=== PATIENT | female | born 1985 | race Caucasian/White ===

== ENCOUNTER 2016-07-03 08:09 | Inpatient (IN) | payer OTHER ==
[2016-07-03] MEDS ORDERED: Oxytocin in LR* 20 UNITS/1,000 ML BAG IVPB SCH ×2 (09:00→13:56)
[2016-07-03 09:27] LABS: Hematocrit 35 % (35-47); Hemoglobin 11.8 g/dl (12.0-16.0); Mean Corpuscular HGB Conc 34 g/dl (31-36); Mean Corpuscular Hemoglobin 30 pg (27-31); Mean Corpuscular Volume 89 fL (80-97); Mean Platelet Volume 8 um3 (7.4-10.4); Red Blood Count 3.93 10^6/ul (4.0-5.4); Red Cell Distribution Width 13 % (10.5-15); White Blood Count 8.5 10^3/ul (3.5-10.8)
[2016-07-03] MEDS ORDERED: OBEPIDURAL* 250 ML ONE (11:55)
[2016-07-03] MEDS ORDERED: Sodium Citrate/Citric Acid* 15 ML UDC PO PRN (12:20)
[2016-07-03] MEDS ORDERED: Phenylephrine IV* 40 MCG/ML 10 ML SYRINGE IV PUSH PRN ×2 (12:20)
[2016-07-03] MEDS ORDERED: Famotidine TAB* 20 MG PO PRN (12:20)
[2016-07-03] MEDS ORDERED: OBEPIDURAL* 250 ML EPIDURAL SCH (13:00)
[2016-07-03] MEDS ORDERED: Glycerin ADULT SUPP PR PRN (13:53)
[2016-07-03] MEDS ORDERED: RHO D Immune Globulin (HUMAN)* 300 MCG = 1,500 I.U. INJ IM ONE (13:53)
[2016-07-03] MEDS ORDERED: Dibucaine 1% 28.35 GM TUBE PR PRN (13:53)
[2016-07-03] MEDS ORDERED: Acetaminophen TAB* 325 MG PO PRN (13:53)
[2016-07-03] MEDS ORDERED: Witch Hazel PAD* JAR TOPICAL PRN (13:53)
[2016-07-03] MEDS: Docusate CAP* 100 MG PO SCH ×2 (14:00→20:54)
[2016-07-03 14:19] LABS: Benzodiazepine Urine Screen None Detected (None Detect)
[2016-07-03] MEDS: Ibuprofen TAB* 600 MG PO PRN (20:54)
[2016-07-04] MEDS: Ibuprofen TAB* 600 MG PO PRN ×4 (03:43→22:26)
[2016-07-04 07:03] LABS: Hematocrit 32 % (35-47); Hemoglobin 10.8 g/dl (12.0-16.0); Mean Corpuscular HGB Conc 34 g/dl (31-36); Mean Corpuscular Hemoglobin 30 pg (27-31); Mean Corpuscular Volume 89 fL (80-97); Mean Platelet Volume 8 um3 (7.4-10.4); Red Blood Count 3.62 10^6/ul (4.0-5.4); Red Cell Distribution Width 13 % (10.5-15); White Blood Count 9.2 10^3/ul (3.5-10.8)
[2016-07-04] MEDS: Docusate CAP* 100 MG PO SCH ×3 (07:29→22:27)
[2016-07-04] MEDS ORDERED: Ferrous Gluconate TAB* 324 MG TAB PO SCH (09:00)
[2016-07-04] MEDS ORDERED: Measles, Mumps,Rubella VACC* 0.5 ML/VIAL SUBCUT ONE (09:00)
[2016-07-05 08:06] VITALS: BP 122/76
[2016-07-05] MEDS: Docusate CAP* 100 MG PO SCH ×2 (09:10→14:55)
[2016-07-05] MEDS: Ibuprofen TAB* 600 MG PO PRN (09:10)
== END 2016-07-05 17:54 | disposition home or self-care (01) | DRG 560 ==
LOC: MCHOBOUT 08:09 → MCHOB 08:30
PROVIDERS: ADMIT Midwife; ATTEND Midwife
PROC: 10E0XZZ Delivery of Products of Conception, External Approach (ICD-10-PCS; principal; 2016-07-03)
PROC: 3E033VJ Introduction of Other Hormone into Peripheral Vein, Percutaneous Approach (ICD-10-PCS; 2016-07-03)
PROC: 3E0P7GC Introduction of Other Therapeutic Substance into Female Reproductive, Via Natural or Artificial Opening (ICD-10-PCS; 2016-07-03)
PROC: 10907ZC Drainage of Amniotic Fluid, Therapeutic from Products of Conception, Via Natural or Artificial Opening (ICD-10-PCS; 2016-07-03)
PROC: 0UQG7ZZ Repair Vagina, Via Natural or Artificial Opening (ICD-10-PCS; 2016-07-03)
DX: O48.0 Post-term pregnancy (principal); O71.4 Obstetric high vaginal laceration alone; O99.334 Smoking (tobacco) complicating childbirth; F17.210 Nicotine dependence, cigarettes, uncomplicated; F11.21 Opioid dependence, in remission; Z3A.41 41 weeks gestation of pregnancy; Z37.0 Single live birth
CPT/HCPCS: 36415; 80307; 85025; 85027; 85461; 86850; 86900; 86901; 90707; A9270-GY; J2790